=== PATIENT | female | born 1975 | race Caucasian/White ===

== ENCOUNTER → 2018-07-23 | Outpatient (CLI) | payer BC ==
[~2018-07-23] MED LIST: PRENATAL VITAMI1 TA5 PO
== END ==
LOC: MC.RAD 08:36
DX: Z12.31 Encounter for screening mammogram for malignant neoplasm of breast (principal)

== ENCOUNTER → 2019-09-30 | Outpatient (CLI) | payer BC | LOC: MC.RAD 11:45 | DX: Z12.31 Encounter for screening mammogram for malignant neoplasm of breast (principal) ==

== ENCOUNTER → 2022-11-14 | Outpatient (CLI) | payer BC | LOC: MC.RAD 09:54 | DX: R92.0 Mammographic microcalcification found on diagnostic imaging of breast (principal) ==